=== PATIENT | female | born 1995 | race Caucasian/White ===

== ENCOUNTER → 2019-03-16 | Outpatient (CLI) | payer OTHER ==
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
== END ==
LOC: RAD 15:30
PROVIDERS: ATTEND Family Medicine
DX: S00.93XA Contusion of unspecified part of head, initial encounter (principal); V89.2XXA Person injured in unspecified motor-vehicle accident, traffic, initial encounter
CPT/HCPCS: 70450

== ENCOUNTER → 2020-02-22 | Outpatient (CLI) | payer BC ==
--- NOTE | 2020-02-22 17:22 | Diagnostic Imaging Report ---
INDICATION: Abnormal uterine bleeding. TECHNIQUE: Pelvic sonography performed in the routine fashion with transabdominal and transvaginal views. FINDINGS: The uterus measured 8.3 x 3.3 x 5.3 cm. There is no myometrial mass. Uterus is mildly anteverted. Endometrium measured 9 mm in thickness. Right ovary was normal in appearance and measured 3.9 x 2.2 x 2.4 cm. The right ovary contained color flow. The left ovary measured 2.3 x 1.8 x 1.6 cm. The left ovary contained color flow. There was no free fluid. IMPRESSION: Unremarkable pelvic sonography. Dictated by: Dictated on workstation # [id number]
== END ==
LOC: RAD 15:02
PROVIDERS: ATTEND Family Medicine
DX: N93.9 Abnormal uterine and vaginal bleeding, unspecified (principal)
CPT/HCPCS: 76830; 76856

== ENCOUNTER 2021-03-17 14:22 | Emergency (ER) | payer BC ==
[~2021-03-17] VITALS: Ht 167 cm; Wt 80.2 kg
--- NOTE | 2021-03-17 14:48 | ED GU-Female ---
General Chief Complaint: OB < 20 WEEKS Stated Complaint: VAGINAL BLEEDING 6 WEEKS Source: patient Exam Limitations: no limitations History of Present Illness Date Seen by Provider: Mar 17, 2021 Time Seen by Provider: 14:35 Initial Comments Patient is a 25-year-old female who presents to the emergency department today with a chief complaint of vaginal bleeding. Patient tells me that the first day of her last menstrual cycle was January 31. She states she tested positive for on a home urine test last week. Patient states she has not had any cramping, she was at work this morning when she went to the bathroom and noticed onset of bleeding that resembled a menstrual cycle with c lots. Patient denies any burning with urination, urgency or frequency. No trauma prior to the onset of bleeding. She denies any URI symptoms, cough or shortness of breath. Actually has no abdominal pain. Patient has a history of irregular menstruation. Her cycles run from anywhere from 45 to 60 days at a time. She normally bleeds very heavy over the course of a menstrual cycle. Patient is scheduled to see Dr. Bashir on Wednesday. All other review of systems reviewed and negative except as stated. Timing/Duration: this morning Severity/Quality: moderate Activities at Onset: rest Associated Symptoms: nausea/vomiting (mild), other (breast tenderness) Allergies and Home Medications Patient Home Medication List Home Medication List Reviewed: Yes Review of Systems Review of Systems Constitutional: see HPI EENTM: no symptoms reported Respiratory: no symptoms reported Cardiovascular: no symptoms reported Gastrointestinal: no symptoms reported Genitourinary: other (vaginal bleeding) : Yes Expected Date of Delivery: Nov 07, 2021 LMP: Jan 31, 2021 Musculoskeletal: no symptoms reported Skin: no symptoms reported Psychiatric/Neurological: Anxiety All Other Systemes Reviewed Negative Unless Noted: Yes Past Xqvffjv-Qpjdjv-Xetwwu Hx Patient Social History Tobacco Use?: No Substance use?: No Alcohol Use?: No Pt feels they are or have been: No Past Medical History Surgery/Hospitalization HX: PMH: ASTHMA, DEPRESSION, SCOLIOSIS Physical Exam Vital Signs Vital Signs - First Documented 03/17/21 14:33 Temp 36.8 Pulse 107 Resp 18 B/P (MAP) 139/95 (110) Pulse Ox 100 Capillary Refill : Height, Weight, BMI Height: '" Weight: lbs. oz. kg; BMI Method: General Appearance: WD/WN, no apparent distress Neck: normal inspection Cardiovascular: regular rate, rhythm, tachycardia (105) Respiratory: lungs clear, normal breath sounds, no respiratory distress, no accessory muscle use Gastrointestinal: normal bowel sounds, non tender, soft Extremities: normal range of motion, no pedal edema Neurologic/Psychiatric: alert, oriented x 3, other (tearful) Skin: normal color, warm/dry Progress/Results/Core Measures Suspected Sepsis SIRS Temperature: Pulse: Respiratory Rate: Laboratory Tests 03/17/21 15:09: White Blood Count 7.3 Blood Pressure / Mean: Laboratory Tests 03/17/21 15:09: Platelet Count 323 Results/Orders Lab Results Laboratory Tests Test 03/17/21 15:09 Range/Units White Blood Count 7.3 4.3-11.0 10^3/uL Red Blood Count 4.10 3.80-5.11 10^6/uL Hemoglobin 11.8 11.5-16.0 g/dL Hematocrit 36 35-52 % Mean Corpuscular Volume 88 80-99 fL Mean Corpuscular Hemoglobin 29 25-34 pg Mean Corpuscular Hemoglobin Concent 33 32-36 g/dL Red Cell Distribution Width 13.1 10.0-14.5 % Platelet Count 323 130-400 10^3/uL Mean Platelet Volume 10.0 9.0-12.2 fL Immature Granulocyte % (Auto) 0 % Neutrophils (%) (Auto) 55 42-75 % Lymphocytes (%) (Auto) 33 12-44 % Monocytes (%) (Auto) 6 0-12 % Eosinophils (%) (Auto) 5 0-10 % Basophils (%) (Auto) 1 0-10 % Neutrophils # (Auto) 4.0 1.8-7.8 10^3/uL Lymphocytes # (Auto) 2.4 1.0-4.0 10^3/uL Monocytes # (Auto) 0.4 0.0-1.0 10^3/uL Eosinophils # (Auto) 0.4 H 0.0-0.3 10^3/uL Basophils # (Auto) 0.0 0.0-0.1 10^3/uL Immature Granulocyte # (Auto) 0.0 0.0-0.1 10^3/uL Urine Color YELLOW Urine Clarity CLEAR Urine pH 7.0 5-9 Urine Specific [place] 1.020 1.016-1.022 Urine Protein NEGATIVE NEGATIVE Urine Glucose (UA) NEGATIVE NEGATIVE Urine Ketones NEGATIVE NEGATIVE Urine Nitrite NEGATIVE NEGATIVE Urine Bilirubin NEGATIVE NEGATIVE Urine Urobilinogen 0.2 < = 1.0 MG/DL Urine Leukocyte Esterase NEGATIVE NEGATIVE Urine RBC (Auto) 1+ H NEGATIVE Urine RBC 2-5 H /HPF Urine WBC RARE /HPF Urine Squamous Epithelial Cells 0-2 /HPF Urine Crystals NONE /LPF Urine Bacteria TRACE /HPF Urine Casts NONE /LPF Urine Mucus NEGATIVE /LPF Urine Culture Indicated NO Human Chorionic Gonadotropin, Quant 1368 H <5 MIU/ML My Orders Orders - DAMARI VIRAMONTES MD Cbc With Automated Diff (03/17/21 14:42) Abo Rh Type (03/17/21 14:42) Ua Culture If Indicated (03/17/21 14:42) Hcg,Quantitative (03/17/21 14:42) Vital Signs/I&O 03/17/21 14:33 Temp 36.8 Pulse 107 Resp 18 B/P (MAP) 139/95 (110) Pulse Ox 100 Capillary Refill : Progress Note : Time: 16:02 Progress Note Patient's been resting comfortably throughout the duration of her ED visit. Labs have been reviewed, the patient's blood type is a positive. Her quantitative hCG is 1300. It is too low at this time to reliably get a pelvic ultrasound to rule out ectopic . The patient does not have any abdominal pain, I believe the likelihood of this is low however I have given the patient good return precautions. We will schedule her for an outpatient redraw of her quantitative hCG on Wednesday. Results to go to Dr. Bashir as she has an appointment on Wednesday with her. Patient's urinalysis is unremarkable. Her CBC is normal. Patient is quite tearful and anxious regarding threatened miscarriage. Pelvic rest advised. Return precautions given. Departure Impression Primary Impression: Threatened miscarriage in early Disposition: 01 HOME, SELF-CARE Condition: Stable Departure-Patient Inst. Decision time for Depature: 16:03 Referrals: LATOSHA MARTIN MD (PCP/Family) Primary Care Physician LEI BASHIR DO Patient Instructions: Threatened Miscarriage (DC) Add. Discharge Instructions: Pelvic rest until you follow-up with Dr. Bashir. This means no intercourse, no tampons. Continue vitamins. Drink plenty of fluids to stay well-hydrated. Should you develop one-sided pelvic pain, heavier vaginal bleeding, fever or any other emergent concerning symptoms please come back to the emergency room for reevaluation. I have given you an outpatient order form for a repeat hormone level. Come back on Wednesday to have this drawn. Dr. Bashir will get your results to discuss with you on Wednesday. DAMARI VIRAMONTES MD Mar 17, 2021 14:48
[2021-03-17 15:20] LABS: BILIRUBIN,URINE NEGATIVE (NEGATIVE); CLARITY,URINE CLEAR; COLOR,URINE YELLOW; GLUCOSE, URINE (UA) NEGATIVE (NEGATIVE); KETONES,URINE NEGATIVE (NEGATIVE); LEUKOCYTE ESTERASE ,URINE NEGATIVE (NEGATIVE); NITRITE,URINE NEGATIVE (NEGATIVE); PROTEIN,URINE NEGATIVE (NEGATIVE)
[2021-03-17 15:24] LABS: BASOPHILS % (AUTO) 1 % (0-10); EOSINOPHILS # (AUTO) 0.4 10^3/uL (0.0-0.3); EOSINOPHILS % (AUTO) 5 % (0-10); HEMATOCRIT 36 % (35-52); HEMOGLOBIN 11.8 g/dL (11.5-16.0); LYMPHOCYTES # (AUTO) 2.4 10^3/uL (1.0-4.0); LYMPHOCYTES % (AUTO) 33 % (12-44); MEAN CORPUSCULAR HEMOGLOBIN 29 pg (25-34); MEAN CORPUSCULAR HGB CONC 33 g/dL (32-36); MEAN CORPUSCULAR VOLUME 88 fL (80-99); MONOCYTES # (AUTO) 0.4 10^3/uL (0.0-1.0); MONOCYTES % (AUTO) 6 % (0-12); NEUTROPHILS % (AUTO) 55 % (42-75); PLATELET COUNT 323 10^3/uL (130-400); WHITE BLOOD COUNT 7.3 10^3/uL (4.3-11.0)
[2021-03-17 15:30] LABS: BACTERIA,URINE TRACE /HPF; SQUAMOUS EPITHELIAL CELL,UR 0-2 /HPF; WBC,URINE RARE /HPF
[2021-03-17 16:10] VITALS: BP 139/95
== END 2021-03-17 16:09 | disposition home or self-care (01) ==
LOC: EDUNIT# 14:22 → ER 14:25
DX: O20.0 Threatened abortion (principal); R00.0 Tachycardia, unspecified; J45.909 Unspecified asthma, uncomplicated
CPT/HCPCS: 36415; 81000; 84702; 84703; 85025; 86900; 86901

== ENCOUNTER → 2021-03-19 | Outpatient (CLI) | payer BC | LOC: LAB 15:49 | PROVIDERS: ATTEND Emergency Medicine | DX: O20.0 Threatened abortion (principal); Z3A.00 Weeks of gestation of pregnancy not specified | CPT/HCPCS: 36415; 84702 ==

== ENCOUNTER → 2021-07-07 | Outpatient (CLI) | payer BC ==
--- NOTE | 2021-07-07 16:22 | Diagnostic Imaging Report ---
INDICATION: patient, survey. TECHNIQUE: Multiple Real-time grayscale images were obtained over the gravid uterus. COMPARISON: No prior studies for comparison. FINDINGS: A single live intrauterine fetus is seen measuring 21 weeks 2 days in size with a sonographic EDC of 11/15/2021. The fetus is in transverse orientation. The heart rate is 149 BPM. The placenta is low-lying. The amniotic fluid index is 13.35 cm. The cervical length is 5.7 cm. The distance from the tip of the internal os to the tip of the placenta is 1.3 cm. The survey shows normal-appearing kidneys and bladder. A normal-appearing stomach is seen. The intracranial ventricles appear normal. The four-chamber heart view is somewhat limited but grossly unremarkable. The three-vessel cord and cord insertion are normal. Views of the spine are limited due to position. There is no free fluid in the adnexal regions. Biometrical measurements are as follows: Biparietal 4.88 cm, age 20 weeks 6 days. Head circumference 19.08 cm, age 21 weeks 3 days. Abdominal circumference 15.66 cm, age 20 weeks 6 days. Femur length 3.71 cm, age 21 weeks 6 days. Sonographic estimate age: 21 weeks 2 days. Sonographic estimated date of delivery: 11/15/2021. Estimated Weight: 411 gm (+/- 60 gm). LMP percentile: 87%. heart rate: 149 beats per minute. number: 1 of 1. IMPRESSION: Single live intrauterine fetus measuring at 21 weeks 2 days in size. The placenta is somewhat low lying being 1.3 cm from the internal os. Consider followup as clinically warranted. The survey shows poor visualization of the spine due to position and suboptimal cardiac views. The remainder of the anatomy appears unremarkable. Consider a limited followup as warranted. Dictated by: Dictated on workstation # [id number]
== END ==
LOC: RAD 15:00
PROVIDERS: ATTEND Obstetrics & Gynecology
DX: Z36.89 Encounter for other specified antenatal screening (principal)
CPT/HCPCS: 76805

== ENCOUNTER → 2021-08-26 | Outpatient (CLI) | payer BC ==
[2021-08-26 17:35] LABS: BASOPHILS % (AUTO) 0 % (0-10); EOSINOPHILS # (AUTO) 0.2 10^3/uL (0.0-0.3); EOSINOPHILS % (AUTO) 2 % (0-10); HEMATOCRIT 35 % (35-52); HEMOGLOBIN 11.4 g/dL (11.5-16.0); LYMPHOCYTES # (AUTO) 1.8 10^3/uL (1.0-4.0); LYMPHOCYTES % (AUTO) 15 % (12-44); MEAN CORPUSCULAR HEMOGLOBIN 28 pg (25-34); MEAN CORPUSCULAR HGB CONC 32 g/dL (32-36); MEAN CORPUSCULAR VOLUME 88 fL (80-99); MONOCYTES # (AUTO) 0.7 10^3/uL (0.0-1.0); MONOCYTES % (AUTO) 6 % (0-12); NEUTROPHILS # (AUTO) 9.1 10^3/uL (1.8-7.8); NEUTROPHILS % (AUTO) 76 % (42-75); PLATELET COUNT 259 10^3/uL (130-400); WHITE BLOOD COUNT 11.9 10^3/uL (4.3-11.0)
[2021-08-26 17:42] LABS: ALBUMIN 3.6 GM/DL (3.2-4.5); POTASSIUM 3.5 MMOL/L (3.6-5.0)
[2021-08-26 17:43] LABS: CALCIUM 9.3 MG/DL (8.5-10.1)
[2021-08-26 17:45] LABS: TOTAL PROTEIN 6.9 GM/DL (6.4-8.2)
[2021-08-26 17:46] LABS: BILIRUBIN,TOTAL 0.2 MG/DL (0.1-1.0)
[2021-08-26 17:48] LABS: CREATININE SERUM 0.67 MG/DL (0.60-1.30)
== END ==
LOC: LABNPT 16:22
PROVIDERS: ATTEND Nurse Practitioner Women's Health
DX: Z36.9 Encounter for antenatal screening, unspecified (principal); Z28.9 Immunization not carried out for unspecified reason
CPT/HCPCS: 80053; 82950; 85025; 86780; 86850

== ENCOUNTER → 2021-09-02 | Outpatient (CLI) | payer BC | LOC: LABNPT 13:55 | PROVIDERS: ATTEND Obstetrics & Gynecology | DX: O99.810 Abnormal glucose complicating pregnancy (principal); Z3A.00 Weeks of gestation of pregnancy not specified | CPT/HCPCS: 82951; 82952 ==

== ENCOUNTER → 2021-09-08 | Outpatient (CLI) | payer BC ==
--- NOTE | 2021-09-08 19:29 | Diagnostic Imaging Report ---
INDICATION: Follow-up anatomy The posterior placenta is no longer low-lying. spine and cardiac structures are now adequately visualized and shown to be unremarkable. Heart rate 152 bpm. Amniotic fluid volume normal. The FADIA 12.5. IMPRESSION: 1. Anatomical follow-up completes the previous limited survey now showing a normal appearance of the cardiac structures and spine with no pathological finding or adverse development. 2. Posterior placenta, no longer low lying. Dictated by: Dictated on workstation # [id number]
== END ==
LOC: RAD 15:00
PROVIDERS: ATTEND Obstetrics & Gynecology
DX: Z34.02 Encounter for supervision of normal first pregnancy, second trimester (principal); Z3A.00 Weeks of gestation of pregnancy not specified
CPT/HCPCS: 76816

== ENCOUNTER → 2021-10-02 | Outpatient (CLI) | payer BC ==
--- NOTE | 2021-10-02 17:16 | Diagnostic Imaging Report ---
INDICATION: Gestational diabetes, , assess growth. TECHNIQUE: Multiple real-time grayscale images were obtained over the gravid uterus. COMPARISON: Study compared with exam dated 09/08/2021. FINDINGS: Casarez viable intrauterine gestation is in cephalic position. Amniotic fluid volume is normal. Cervix is nondilated measuring 6.1 cm in length. The posterior placenta appeared normal. No abruption or previa. The heart rate is 149 BPM. Estimated age by today's ultrasound is 33 weeks 4 days. Sonographic EDC is 11/16/2021. IMPRESSION: Casarez viable IUP measures 33 weeks 4 days with no pathological finding identified. Biometrical measurements are as follows: Biparietal 8.35 cm, age 33 weeks 5 days. Head circumference 30.77 cm, age 34 weeks 3 days. Abdominal circumference 28.45 cm, age 32 weeks 4 days. Femur length 6.44 cm, age 33 weeks 2 days. Sonographic estimate age: 33 weeks 4 days. Sonographic estimated date of delivery: 11/16/2021. Estimated Weight: 2094 gm (+/- 306 gm). LMP percentile: 44%. heart rate: 149 beats per minute. number: 1 of 1. Dictated by: Dictated on workstation # [id number]
== END ==
LOC: RAD 15:01
PROVIDERS: ATTEND Obstetrics & Gynecology
DX: O24.419 Gestational diabetes mellitus in pregnancy, unspecified control (principal); Z3A.33 33 weeks gestation of pregnancy
CPT/HCPCS: 76805

== ENCOUNTER 2021-10-26 16:04 | Outpatient (CLI) | payer BC ==
[~2021-10-26] VITALS: Ht 167.7 cm; Wt 89.4 kg
[2021-10-26] VITALS (9 sets, daily range): BP systolic 129–150; BP diastolic 84–108
[2021-10-26] MEDS ORDERED: CETI10CA PO (17:01)
[2021-10-26] MEDS ORDERED: PREN-37 PO (17:01)
[2021-10-26] MEDS ORDERED: FLUT9.9S NS (17:01)
[2021-10-26] MEDS ORDERED: DOCU-143 PO (17:01)
[2021-10-26 17:53] LABS: HEMATOCRIT 37 % (35-52); HEMOGLOBIN 12.3 g/dL (11.5-16.0); MEAN CORPUSCULAR HEMOGLOBIN 29 pg (25-34); MEAN CORPUSCULAR HGB CONC 33 g/dL (32-36); MEAN CORPUSCULAR VOLUME 88 fL (80-99); MEAN PLATELET VOLUME 11.5 fL (9.0-12.2); PLATELET COUNT 228 10^3/uL (130-400); WHITE BLOOD COUNT 11.1 10^3/uL (4.3-11.0)
[2021-10-26 18:10] LABS: ALBUMIN 3.6 GM/DL (3.2-4.5); BILIRUBIN,TOTAL 0.2 MG/DL (0.1-1.0); CALCIUM 10.1 MG/DL (8.5-10.1); CREATININE SERUM 0.75 MG/DL (0.60-1.30); TOTAL PROTEIN 7.3 GM/DL (6.4-8.2); URIC ACID 5.6 MG/DL (2.6-7.2)
--- NOTE | 2021-10-27 08:23 | Physician Query-Final Dx ---
TRISHA,10/27/21 0823: Clinic Account Progress/Dx Physician Query: Please give diagnosis Please include # weeks gestation Date of Service Oct 26, 2021 at 16:04 HIMANSHU HASSAN DO 10/27/21 1003: Clinic Account Progress/Dx DIAGNOSIS: Diagnosis 36 week IUP Decreased movement ARLIN RICO,MayOct 27, 2021 08:23 HIMANSHU HASSAN DO Oct 27, 2021 10:03
== END 2021-10-26 18:35 | disposition home or self-care (01) ==
LOC: LDRP 16:04 → WSo 16:04
PROVIDERS: ATTEND Obstetrics & Gynecology
DX: O36.8130 Decreased fetal movements, third trimester, not applicable or unspecified (principal); Z3A.36 36 weeks gestation of pregnancy
CPT/HCPCS: 36415; 80053; 82570; 84156; 84550; 85027; 99213

== ENCOUNTER → 2021-10-29 | Outpatient (CLI) | payer BC ==
[~2021-10-29] MED LIST: CETI10CA PO; DOCU-143 PO; FLUT9.9S NS; PREN-37 PO
== END ==
LOC: LABNPT 16:03
PROVIDERS: ATTEND Obstetrics & Gynecology
DX: O13.9 Gestational [pregnancy-induced] hypertension without significant proteinuria, unspecified trimester (principal)
CPT/HCPCS: 82570; 84156

== ENCOUNTER → 2021-10-31 | Outpatient (CLI) | payer BC ==
--- NOTE | 2021-10-31 12:57 | Diagnostic Imaging Report ---
INDICATION: Evaluate growth. Patient also has history of gestational diabetes. TECHNIQUE: Multiple real-time grayscale images were obtained over the gravid uterus. COMPARISON: 10/02/2021. FINDINGS: There is a single live fetus in a cephalic presentation. heart rate was recorded at 150 bpm. Placenta is posterior. Amniotic fluid index is 13 cm. Biometry measurements demonstrate normal interval growth when compared with prior exam. No complicating features are detected. Biometrical measurements are as follows: Biparietal 8.98 cm, age 36 weeks 3 days. Head circumference 32.96 cm, age 37 weeks 4 days. Abdominal circumference 32.16 cm, age 36 weeks 1 days. Femur length 7.10 cm, age 36 weeks 3 days. Sonographic estimate age: 36 weeks 5 days. Sonographic estimated date of delivery: 11/23/2021. Estimated Weight: 2913 gm (+/- 425 gm). LMP percentile: 38%. heart rate: 150 beats per minute. number: 1 of 1. IMPRESSION: Single live IUP approximately 36-37 weeks gestational age showing normal interval growth. No complicating features are detected. Dictated by: Dictated on workstation # [id number]
== END ==
LOC: RAD 12:00
PROVIDERS: ATTEND Obstetrics & Gynecology
DX: O13.9 Gestational [pregnancy-induced] hypertension without significant proteinuria, unspecified trimester (principal); Z3A.36 36 weeks gestation of pregnancy
CPT/HCPCS: 76805

== ENCOUNTER 2021-11-17 06:11 | Inpatient (IN) | payer BC ==
[~2021-11-17] VITALS: Ht 170 cm; Wt 89.9 kg
[2021-11-17] VITALS (67 sets, daily range): BP systolic 121–178; BP diastolic 66–105
[2021-11-17] MEDS ORDERED: AMPICILLIN FOR IV USE 2,000 MG in NS (IVPB) 50 ML IV SCH (07:31)
[2021-11-17] MEDS ORDERED: OXYTOCIN PRE-MIX DRIP 500 ML IV SCH ×2 (07:45→08:00)
[2021-11-17] MEDS ORDERED: MINERAL OIL 30 ML TOP PRN (07:45)
[2021-11-17 07:59] LABS: BASOPHILS % (AUTO) 0 % (0-10); EOSINOPHILS # (AUTO) 0.2 10^3/uL (0.0-0.3); EOSINOPHILS % (AUTO) 2 % (0-10); HEMATOCRIT 36 % (35-52); HEMOGLOBIN 11.9 g/dL (11.5-16.0); LYMPHOCYTES # (AUTO) 1.8 10^3/uL (1.0-4.0); LYMPHOCYTES % (AUTO) 25 % (12-44); MEAN CORPUSCULAR HEMOGLOBIN 29 pg (25-34); MEAN CORPUSCULAR HGB CONC 34 g/dL (32-36); MEAN CORPUSCULAR VOLUME 87 fL (80-99); MEAN PLATELET VOLUME 11.7 fL (9.0-12.2); MONOCYTES # (AUTO) 0.6 10^3/uL (0.0-1.0); MONOCYTES % (AUTO) 8 % (0-12); NEUTROPHILS # (AUTO) 4.6 10^3/uL (1.8-7.8); NEUTROPHILS % (AUTO) 65 % (42-75); PLATELET COUNT 178 10^3/uL (130-400); WHITE BLOOD COUNT 7.2 10^3/uL (4.3-11.0)
[2021-11-17] MEDS ORDERED: TETANUS,DIPTH,PERTUSS P/F (BOOSTRIX) 0.5 ML VIAL IM ONE (08:00)
[2021-11-17] MEDS ORDERED: BENZOCAINE/MENTHOL (DERMOPLAST) 56 ML CAN TP PRN (08:00)
[2021-11-17] MEDS ORDERED: MEASLES,MUMPS,RUBELLA 1 EA INJ SQ ONE (08:00)
[2021-11-17] MEDS ORDERED: NALOXONE 0.4 MG/ML 1 ML (NARCAN) VIAL IV PRN (08:00)
[2021-11-17] MEDS ORDERED: WITCH HAZEL(TUCKS) 40 EA JAR TOP PRN (08:00)
[2021-11-17] MEDS: D5 LR IV SOLUTION 1,000 ML IV SCH ×2 (08:02→16:20)
[2021-11-17 08:30] LABS: ALBUMIN 3.2 GM/DL (3.2-4.5); BILIRUBIN,TOTAL 0.2 MG/DL (0.1-1.0); CREATININE SERUM 0.79 MG/DL (0.60-1.30); POTASSIUM 3.7 MMOL/L (3.6-5.0); TOTAL PROTEIN 6.4 GM/DL (6.4-8.2)
[2021-11-17] MEDS: AMPICILLIN FOR IV USE 1,000 MG in NS (IVPB) 50 ML IV SCH ×3 (12:07→20:10)
[2021-11-17] MEDS ORDERED: fentaNYL 2 mcg/ml BUPIVA 0.125 100 ML ONE (12:36)
[2021-11-17] MEDS ORDERED: fentaNYL INJ 100 MCG/2 ML AMP ONE ×2 (12:44→13:04)
[2021-11-17] MEDS ORDERED: BUPIVACAINE SPINAL 0.75% (SENSORCAINE) 2 ML AMP ONE (13:05)
[2021-11-17] MEDS ORDERED: CATHETER FLUSH 10 ML SYR IV SCH ×2 (14:00)
[2021-11-17] MEDS ORDERED: fentaNYL 2 mcg/ml BUPIVA 0.125 100 ML IV SCH (19:45)
[2021-11-17] MEDS ORDERED: LACTATED RINGERS 1,000 ML IV ONE (19:45)
--- NOTE | 2021-11-17 21:47 | OB Labor & Delivery Record ---
Vag Delivery Note Vag Delivery Note Date of Delivery: 11/17/21 Preoperative Diagnosis: Almita Torres is a (26 /Para / ,Gestational Age (wks)39with A1 gestational diabetes Postoperative Diagnosis: Same Surgeon: ALIDA DELACRUZ Anesthesia: [] Epidural Delivery Type: [Vaginal] Findings: [] Viable [] male , apgars [8 /9], weight [] Lacerations: Second-degree perineal left vaginal sidewall extending into left labial Intact placenta with 3 vessel cord. No nuchal cord, body cord or shoulder dystocia Cytotec 800 mcg placed for hemorrhage prophylaxis Estimated Blood Loss: [600] ml Complications: None Condition: Stable Description of Procedure: The patient is a 26 year old female who presented for induction of labor for the above diagnoses.. She was admitted and informed consent was obtained. She had Pitocin induction with artificial rupture membranes at 4 cm revealing clear fluid. She progressed to stage II and pushed with contractions delivering an rotating from LOT to [place]. Nose and mouth were suctioned and was placed on mom's abdomen. Terminal meconium was noted. Cord was clamped and cut and cord blood was drawn. The placenta was expressed and held. Uterine tone was achieved with Pitocin after delivery of the infant although lower uterine segment atony was encountered. [place] and bimanual massage was performed and 1000 mcg of Cytotec was placed per rectum. Bleeding persisted and was appreciated to be from the vaginal and labial's laceration. The vaginal tear was repaired with a 2-0 Vicryl as was the perineal laceration. The labial was repaired with interrupted 3-0 chromic stitch and hemostasis was appreciated. Mom and baby tolerated delivery well. She received ampicillin during labor for GBS carrier status. She had intermittently mildly elevated blood pressures in labor. She had no signs or symptoms of preeclampsia with severe features and blood pressures will continue to be monitored Vitals - Labs Vital Signs - I&O Vital Signs Date Time Temp Pulse Resp B/P (MAP) Pulse Ox O2 Delivery O2 Flow Rate FiO2 11/17/21 18:55 86 20 150/85 (106) 11/17/21 18:40 36.6 78 20 164/86 (112) 11/17/21 18:25 71 20 160/89 (112) 11/17/21 18:10 71 20 149/90 (109) 11/17/21 17:55 69 20 139/90 (106) 22 17:40 82 20 139/87 (104) 11/17/21 17:25 73 20 145/89 (107) 11/17/21 17:10 75 20 143/92 (109) 22 16:55 80 20 137/80 (99) 11/17/21 16:40 76 20 133/78 (96) 11/17/21 16:25 36.4 73 20 134/86 (102) 11/17/21 16:10 72 20 135/97 (110) 98 11/17/21 15:55 64 20 124/79 (94) 97 11/17/21 15:35 64 20 124/81 (95) 98 11/17/21 15:20 59 20 138/67 (90) 98 11/17/21 15:05 36.5 59 20 138/67 (90) 98 11/17/21 14:55 60 20 143/66 (91) 97 11/17/21 14:35 68 20 142/84 (103) 98 11/17/21 14:20 62 20 139/80 (99) 98 11/17/21 14:08 63 20 145/93 (110) 98 11/17/21 14:03 62 20 149/96 (113) 97 11/17/21 13:58 64 20 140/91 (107) 97 11/17/21 13:52 73 20 155/96 (115) 98 11/17/21 13:48 69 20 160/98 (118) 98 11/17/21 13:42 67 20 136/93 (107) 97 11/17/21 13:35 64 20 177/103 (127) 98 1822 13:32 67 20 148/78 (101) 98 22 13:29 67 20 160/89 (112) 98 11/17/21 13:26 64 20 165/91 (115) 98 11/17/21 13:23 70 20 162/92 (115) 98 1822 13:20 77 20 173/72 (105) 98 1822 13:17 67 20 161/104 (123) 98 11/17/21 13:14 60 20 146/93 (110) 98 11/17/21 13:11 65 20 148/97 (114) 97 11/17/21 13:08 64 20 164/90 (114) 97 11/17/21 13:05 74 20 140/84 (102) 97 11/17/21 13:01 80 20 160/80 (106) 99 11/17/21 12:50 80 20 178/105 (129) 99 11/17/21 12:35 67 160/103 (122) 11/17/21 12:05 82 158/98 (118) 11/17/21 11:50 80 166/100 (122) 11/17/21 11:35 76 151/102 (118) 11/17/21 11:20 76 151/95 (113) 11/17/21 11:05 86 142/85 (104) 11/17/21 10:50 69 142/88 (106) 11/17/21 10:35 83 143/97 (112) 11/17/21 10:20 36.5 80 146/86 (106) 11/17/21 10:05 75 154/84 (107) 11/17/21 09:50 84 139/100 (113) 11/17/21 09:35 78 140/102 (115) 11/17/21 09:20 80 150/90 (110) 11/17/21 09:05 82 165/103 (123) 11/17/21 08:45 77 167/99 (121) 11/17/21 07:15 36.4 90 18 98 Room Air 11/17/21 07:15 36.4 90 18 133/87 (102) 98 Room Air Labs Laboratory Tests 11/17/21 07:45: White Blood Count 7.2, Red Blood Count 4.09, Hemoglobin 11.9, Hematocrit 36, Mean Corpuscular Volume 87, Mean Corpuscular Hemoglobin 29, Mean Corpuscular Hemoglobin Concent 34, Red Cell Distribution Width 14.1, Platelet Count 178, Mean Platelet Volume 11.7, Immature Granulocyte % (Auto) 0, Neutrophils (%) (Auto) 65, Lymphocytes (%) (Auto) 25, Monocytes (%) (Auto) 8, Eosinophils (%) (Auto) 2, Basophils (%) (Auto) 0, Neutrophils # (Auto) 4.6, Lymphocytes # (Auto) 1.8, Monocytes # (Auto) 0.6, Eosinophils # (Auto) 0.2, Basophils # (Auto) 0.0, Immature Granulocyte # (Auto) 0.0, Sodium Level 138, Potassium Level 3.7, Chloride Level 108H, Carbon Dioxide Level 17L, Anion Gap 13, Blood Urea Nitrogen 16, Creatinine 0.79, Estimat Glomerular Filtration Rate 105, BUN/Creatinine Ratio 20, Glucose Level 104, Calcium Level 9.0, Corrected Calcium 9.6, Total Bilirubin 0.2, Aspartate Amino Transf (AST/SGOT) 18, Alanine Aminotransferase (ALT/SGPT) 18, Alkaline Phosphatase 161H, Total Protein 6.4, Albumin 3.2 11/17/21 10:10: Glucometer 106 11/17/21 16:15: Glucometer 119H ALIDA DELACRUZ MD Nov 17, 2021 21:47
[2021-11-17] MEDS: ACETAMINOPHEN 500 MG TAB (TYLENOL) PO SCH (22:27)
[2021-11-17] MEDS: IBUPROFEN 600 MG (MOTRIN) TAB PO SCH (22:27)
[2021-11-17] MEDS: DOCUSATE SODIUM 100 MG (COLACE) CAP PO SCH (23:45)
[2021-11-18 02:05] VITALS: BP 149/77
[2021-11-18 03:16] LABS: BASOPHILS % (AUTO) 0 % (0-10); EOSINOPHILS % (AUTO) 0 % (0-10); HEMATOCRIT 27 % (35-52); HEMOGLOBIN 8.9 g/dL (11.5-16.0); LYMPHOCYTES # (AUTO) 1.5 10^3/uL (1.0-4.0); LYMPHOCYTES % (AUTO) 9 % (12-44); MEAN CORPUSCULAR HEMOGLOBIN 29 pg (25-34); MEAN CORPUSCULAR HGB CONC 33 g/dL (32-36); MEAN CORPUSCULAR VOLUME 88 fL (80-99); MEAN PLATELET VOLUME 11.8 fL (9.0-12.2); MONOCYTES % (AUTO) 6 % (0-12); NEUTROPHILS # (AUTO) 13.6 10^3/uL (1.8-7.8); NEUTROPHILS % (AUTO) 84 % (42-75); PLATELET COUNT 141 10^3/uL (130-400); WHITE BLOOD COUNT 16.2 10^3/uL (4.3-11.0)
[2021-11-18 03:24] LABS: ALBUMIN 2.4 GM/DL (3.2-4.5); POTASSIUM 3.8 MMOL/L (3.6-5.0)
[2021-11-18 03:25] LABS: CALCIUM 8.2 MG/DL (8.5-10.1)
[2021-11-18 03:26] LABS: TOTAL PROTEIN 4.7 GM/DL (6.4-8.2)
[2021-11-18 03:28] LABS: BILIRUBIN,TOTAL 0.2 MG/DL (0.1-1.0)
[2021-11-18 03:30] LABS: CREATININE SERUM 0.76 MG/DL (0.60-1.30)
[2021-11-18] MEDS: ACETAMINOPHEN 500 MG TAB (TYLENOL) PO SCH ×4 (05:17→19:45)
[2021-11-18] MEDS: IBUPROFEN 600 MG (MOTRIN) TAB PO SCH ×5 (05:17→19:47)
[2021-11-18 05:21] VITALS: BP 123/73
[2021-11-18] MEDS ORDERED: OXC5T PO (07:13)
[2021-11-18] MEDS ORDERED: IBUP-844 PO (07:13)
[2021-11-18 08:29] LABS: BASOPHILS # (AUTO) 0.1 10^3/uL (0.0-0.1); BASOPHILS % (AUTO) 0 % (0-10); EOSINOPHILS # (AUTO) 0.1 10^3/uL (0.0-0.3); EOSINOPHILS % (AUTO) 0 % (0-10); HEMATOCRIT 27 % (35-52); LYMPHOCYTES # (AUTO) 2.6 10^3/uL (1.0-4.0); LYMPHOCYTES % (AUTO) 17 % (12-44); MEAN CORPUSCULAR HEMOGLOBIN 29 pg (25-34); MEAN CORPUSCULAR HGB CONC 33 g/dL (32-36); MEAN CORPUSCULAR VOLUME 89 fL (80-99); MEAN PLATELET VOLUME 11.5 fL (9.0-12.2); MONOCYTES # (AUTO) 0.9 10^3/uL (0.0-1.0); MONOCYTES % (AUTO) 6 % (0-12); NEUTROPHILS % (AUTO) 77 % (42-75); PLATELET COUNT 148 10^3/uL (130-400); WHITE BLOOD COUNT 15.7 10^3/uL (4.3-11.0)
--- NOTE | 2021-11-18 08:31 | Postpartum Progress Note ---
Note Note Progress note Subjective: Patient states pain is well controlled trolled. Only location of pain is along her spine and it feels that it radiates cephalad and is localized around the catheter site. Breast-feeding. Lochia is appropriate without clots. Denies headache, blurry vision, right upper quadrant pain. No other complaints of Objective: Vital signs are stable patient is afebrile. Continues to have mildly elevated blood pressures General alert and oriented x3 in no acute distress Chest is nonlabored Working on breast-feeding and breasts are clearly not engorged yet she is utilizing a nipple shield Abdomen soft nondistended nontender fundus is firm nontender Extremities are nontender with SCDs in place Hemoglobin 8.9 down from admission of 11.9. Repeat this morning is pending Assessment: Status post spontaneous vaginal delivery day 1 with incidental spinal tap during epidural placement Plan: Continue routine care with support Anesthesia evaluation is pending and anticipate a blood patch Will consider dismissal home tomorrow but would not eliminate need for longer hospital stay If hemoglobin remained stable will continue with p.o. iron and vitamin outpatient; otherwise will consider IV iron prior to dismissal Vitals - Labs Vital Signs - I&O Vital Signs Date Time Temp Pulse Resp B/P (MAP) Pulse Ox O2 Delivery O2 Flow Rate FiO2 11/18/21 05:21 36.5 68 18 123/73 (90) 97 Room Air 11/18/21 02:05 36.8 88 20 149/77 (101) 99 Room Air 11/17/21 23:45 78 20 123/82 (96) 11/17/21 23:38 36.9 96 20 121/82 (95) Room Air 11/17/21 22:05 114 20 146/76 (99) 11/17/21 21:52 102 20 134/92 (106) 11/17/21 21:40 109 20 128/90 (103) 11/17/21 21:25 109 20 139/84 (102) 11/17/21 20:40 100 20 174/82 (112) 11/17/21 20:25 69 20 165/80 (108) 11/17/21 20:12 80 20 148/84 (105) 11/17/21 20:10 87 20 142/87 (105) 11/17/21 19:40 80 20 136/82 (100) 11/17/21 19:25 72 20 160/96 (117) 11/17/21 19:10 36.9 82 20 142/93 (109) 11/17/21 18:55 86 20 150/85 (106) 11/17/21 18:40 36.6 78 20 164/86 (112) 11/17/21 18:25 71 20 160/89 (112) 11/17/21 18:10 71 20 149/90 (109) 11/17/21 17:55 69 20 139/90 (106) 11/17/21 17:40 82 20 139/87 (104) 11/17/21 17:25 73 20 145/89 (107) 11/17/21 17:10 75 20 143/92 (109) 11/17/21 16:55 80 20 137/80 (99) 11/17/21 16:40 76 20 133/78 (96) 11/17/21 16:25 36.4 73 20 134/86 (102) 11/17/21 16:10 72 20 135/97 (110) 98 11/17/21 15:55 64 20 124/79 (94) 97 11/17/21 15:35 64 20 124/81 (95) 98 11/17/21 15:20 59 20 138/67 (90) 98 11/17/21 15:05 36.5 59 20 138/67 (90) 98 11/17/21 14:55 60 20 143/66 (91) 97 11/17/21 14:35 68 20 142/84 (103) 98 11/17/21 14:20 62 20 139/80 (99) 98 11/17/21 14:08 63 20 145/93 (110) 98 11/17/21 14:03 62 20 149/96 (113) 97 11/17/21 13:58 64 20 140/91 (107) 97 11/17/21 13:52 73 20 155/96 (115) 98 11/17/21 13:48 69 20 160/98 (118) 98 11/17/21 13:42 67 20 136/93 (107) 97 11/17/21 13:35 64 20 177/103 (127) 98 11/17/21 13:32 67 20 148/78 (101) 98 11/17/21 13:29 67 20 160/89 (112) 98 11/17/21 13:26 64 20 165/91 (115) 98 11/17/21 13:23 70 20 162/92 (115) 98 11/17/21 13:20 77 20 173/72 (105) 98 11/17/21 13:17 67 20 161/104 (123) 98 11/17/21 13:14 60 20 146/93 (110) 98 11/17/21 13:11 65 20 148/97 (114) 97 11/17/21 13:08 64 20 164/90 (114) 97 11/17/21 13:05 74 20 140/84 (102) 97 11/17/21 13:01 80 20 160/80 (106) 99 11/17/21 12:50 80 20 178/105 (129) 99 11/17/21 12:35 67 160/103 (122) 11/17/21 12:05 82 158/98 (118) 11/17/21 11:50 80 166/100 (122) 11/17/21 11:35 76 151/102 (118) 11/17/21 11:20 76 151/95 (113) 11/17/21 11:05 86 142/85 (104) 11/17/21 10:50 69 142/88 (106) 11/17/21 10:35 83 143/97 (112) 11/17/21 10:20 36.5 80 146/86 (106) 11/17/21 10:05 75 154/84 (107) 11/17/21 09:50 84 139/100 (113) 11/17/21 09:35 78 140/102 (115) 11/17/21 09:20 80 150/90 (110) 11/17/21 09:05 82 165/103 (123) 11/17/21 08:45 77 167/99 (121) I & O 11/18/21 07:00 Intake Total 3114.8 ml Output Total 250 ml Balance 2864.8 ml Labs Laboratory Tests 11/17/21 10:10: Glucometer 106 11/17/21 16:15: Glucometer 119H 11/18/21 03:05: White Blood Count 16.2H, Red Blood Count 3.05L, Hemoglobin 8.9#L, Hematocrit 27L , Mean Corpuscular Volume 88, Mean Corpuscular Hemoglobin 29, Mean Corpuscular Hemoglobin Concent 33, Red Cell Distribution Width 14.2, Platelet Count 141, Mean Platelet Volume 11.8, Immature Granulocyte % (Auto) 0, Neutrophils (%) (Auto) 84H, Lymphocytes (%) (Auto) 9L, Monocytes (%) (Auto) 6, Eosinophils (%) (Auto) 0, Basophils (%) (Auto) 0, Neutrophils # (Auto) 13.6H, Lymphocytes # (Auto) 1.5, Monocytes # (Auto) 1.0, Eosinophils # (Auto) 0.0, Basophils # (Auto) 0.0, Immature Granulocyte # (Auto) 0.1, Sodium Level 135, Potassium Level 3.8, Chloride Level 109H, Carbon Dioxide Level 17L, Anion Gap 9, Blood Urea Nitrogen 15, Creatinine 0.76, Estimat Glomerular Filtration Rate 110, BUN/Creatinine Ratio 20, Glucose Level 129H, Calcium Level 8.2L, Corrected Calcium 9.5, Total Bilirubin 0.2, Aspartate Amino Transf (AST/SGOT) 22, Alanine Aminotransferase (ALT/SGPT) 16, Alkaline Phosphatase 119, Total Protein 4.7L, Albumin 2.4L 11/18/21 08:22: ALIDA DELACRUZ MD Nov 18, 2021 08:31
[2021-11-18 09:45] VITALS: BP 122/77
[2021-11-18] MEDS: DOCUSATE SODIUM 100 MG (COLACE) CAP PO SCH ×2 (09:59→20:46)
[2021-11-18 12:30] VITALS: BP 145/84
--- NOTE | 2021-11-18 12:48 | Anesthesia-Regional Post-Op ---
Regional Patient Condition Mental Status: Alert, Oriented x3 Circulation: Same as Pre-Op Headache: Absent Sensation: Full Recovery Motor Block: Absent Post Op Complications Complications None Follow Up Care/Instructions Patient Instructions None needed. Anesthesia/Patient Condition Patient is doing well, no complaints, stable vital signs, no apparent adverse anesthesia problems. No complications reported per nursing. CANDY TAVERAS CRNA Nov 18, 2021 12:48
[2021-11-18 16:00] VITALS: BP 142/81
[2021-11-18 20:46] VITALS: BP 132/70
[2021-11-19] MEDS: ACETAMINOPHEN 500 MG TAB (TYLENOL) PO SCH ×4 (00:40→14:09)
[2021-11-19] MEDS: IBUPROFEN 600 MG (MOTRIN) TAB PO SCH ×4 (00:40→14:09)
[2021-11-19 01:19] VITALS: BP 156/102
[2021-11-19 04:40] VITALS: BP 132/79
[2021-11-19 09:00] VITALS: BP 132/75
[2021-11-19] MEDS: DOCUSATE SODIUM 100 MG (COLACE) CAP PO SCH (09:02)
--- NOTE | 2021-11-19 12:24 | Discharge Inst-Women's Service ---
Discharge Inst-Women's Serv Depart Medication/Instructions New, Converted or Re-Newed RX: Transmitted to Pharmacy Consults/Follow Up Additional Follow Up: Yes (6wk PP appt) Activity Activity: Activity as Tolerated Driving Instructions: No Driving for 1 Week NO SMOKING: NO SMOKING Nothing Inside Vagina: No Douching, No [place], No Tampons Diet Discharge Diet: No Restrictions Symptoms to Report to : Pain Increased, Fever Over 101 Degrees F, Vaginal Bleeding Increase, Lightheadedness, Dizziness/Fainting For Any Problems or Questions: Contact Your Physician HENRRY KENYON APRN Nov 19, 2021 12:24
--- NOTE | 2021-11-19 12:28 | Postpartum Progress Note ---
Note Note Day # 2 Subjective: Patient is without complaints. Ambulating, voiding. Tolerating a regular diet without nausea or vomiting. Normal lochia. Pain is well controlled with oral pain medications. Breast feeding w/o difficulty Physical Exam: General - Alert and oriented, no apparent distress Abdomen - Soft, appropriately tender to palpation, non-distended, fundus firm at umbilicus Extremities - no edema, negative Pauline's bilaterally Assessment: Post- day # 2, status post vaginal delivery. Recovering well, hemodynamically stable Acute blood loss anemia Spinal headache Plan: Routine care. Encourage breast feeding. Encourage ambulation. Ferrous sulfate supplementation. Plan for discharge today Vitals - Labs Vital Signs - I&O Vital Signs Date Time Temp Pulse Resp B/P (MAP) Pulse Ox O2 Delivery O2 Flow Rate FiO2 11/19/21 04:40 83 18 132/79 (96) Room Air 11/19/21 01:19 36.8 101 18 156/102 (120) 98 Room Air 11/18/21 20:46 36.2 96 18 132/70 (90) 98 Room Air 11/18/21 16:00 36.7 82 18 142/81 (101) 97 Room Air 11/18/21 12:30 36.4 79 18 145/84 (104) 98 Room Air HENRRY KENYON APRN Nov 19, 2021 12:28
[2021-11-19 14:00] VITALS: BP 132/77
[2021-11-19 16:20] VITALS: BP 132/77
== END 2021-11-19 16:20 | disposition home or self-care (01) | DRG 806 ==
LOC: LDRP 06:11
PROVIDERS: ADMIT Obstetrics & Gynecology; ATTEND Obstetrics & Gynecology
PROC: 10E0XZZ Delivery of Products of Conception, External Approach (ICD-10-PCS; principal; 2021-11-17)
PROC: 0KQM0ZZ Repair Perineum Muscle, Open Approach (ICD-10-PCS; 2021-11-17)
PROC: 10907ZC Drainage of Amniotic Fluid, Therapeutic from Products of Conception, Via Natural or Artificial Opening (ICD-10-PCS; 2021-11-17)
PROC: 3E033VJ Introduction of Other Hormone into Peripheral Vein, Percutaneous Approach (ICD-10-PCS; 2021-11-17)
PROC: 0UQMXZZ Repair Vulva, External Approach (ICD-10-PCS; 2021-11-17)
DX: O70.1 Second degree perineal laceration during delivery (principal); D62 Acute posthemorrhagic anemia; Z37.0 Single live birth; Z3A.39 39 weeks gestation of pregnancy; O90.81 Anemia of the puerperium; O89.4 Spinal and epidural anesthesia-induced headache during the puerperium
CPT/HCPCS: 36415; 80053; 82947; 85025; 86850; 86900; 86901